=== PATIENT | male | born 1945 | race Caucasian/White ===

== ENCOUNTER 2018-09-15 08:11 | Outpatient (CLI) | payer MEDICARE, OTHER ==
--- NOTE | 2018-09-15 09:50 | CT ---
CTA Angio Neck W WO Con History: Atherosclerotic heart disease. Carotid stenosis. Comparison: None. Findings: CT angiogram of the neck performed after the intravenous administration of contrast. 3-D re ndering provided. Large right layering pleural effusion with anterior convexity suggesting a component of loculation. N o supraclavicular adenopathy. No cervical adenopathy. Aortic size is normal. The right vertebral artery is small with the left vertebral artery being domin ant. Vertebral arteries are patent. Origin of both vertebral arteries are patent. Right common carotid artery is patent. The internal carotid artery is patent with mild atheroscleroti c plaque of the origin of the internal carotid artery. Approximate 20% stenosis proximal right internal carotid artery for a craniocaudal length of 8 mm. The left common carotid artery is patent. Approximately 25% stenosis proximal left internal carotid a rtery for length of 1 cm. No acute osseous abnormality. Impression: 1. No hemodynamically significant stenosis per NASCET criteria. 2. Layering right pleural effusion with likely a component of loculation given the anterior convexity . 3. Dominant left vertebral artery. Transcribed Date/Time: 09/15/2018 9:58 AM
[2018-09-15] MEDS ORDERED: Iopamidol 370 76% 100 ML VIAL ONE (13:20)
== END 2018-09-15 08:12 | disposition home or self-care (01) ==
LOC: CT 08:11
PROVIDERS: ATTEND Thoracic Surgery (Cardiothoracic Vascular Surgery)
DX: I25.10 Atherosclerotic heart disease of native coronary artery without angina pectoris (principal); J90 Pleural effusion, not elsewhere classified
CPT/HCPCS: 70498; 82565; Q9967